=== PATIENT | female | born 2000 | race Caucasian/White ===

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

== ENCOUNTER 2019-02-03 23:16 | Emergency (ER) | payer MEDICAID ==
[2019-02-03] MEDS ORDERED: NS 1,000 ML IV ONE (23:58)
[2019-02-04 01:42] LABS: PLATELET COUNT 230 10^3/uL (150-400)
[2019-02-04 02:54] VITALS: BP 112/66
--- NOTE | 2019-02-04 02:55 | EDPHY ---
H & P Stated Complaint: uti sx 2 days and not feeling well Time Seen by Provider: 02/03/19 23:38 HPI/ROS: Chief complaint: URI like symptoms, abdominal pain, vaginal discomfort History of present illness: This is a 18-year-old female who presents to the emergency department for multiple complaints. She is complaining initially of a persistent sore throat over the last week. Symptoms have been persistent. She denies associated signs or symptoms including no fevers, no cough, no chest congestion, no body aches, no rash. In addition, she reports the onset of abdominal pain and vaginal discomfort over the last few days. It began shortly after sexual intercourse. She has pain in the right lower aspect of the abdomen and pelvis. She also has a burning sensation in the vagina. Symptoms have been persistent. She denies alleviating or aggravating factors. She denies other associated signs or symptoms including no nausea or vomiting, no diarrhea or constipation, no urinary symptoms including dysuria, frequency or hesitancy as well as no flank pain or back pain. Review of systems: A 10 point review of systems was obtained and other than described above was negative - Personal History LMP (Females 10-55): 1-7 Days Ago Current Tetanus/Diphtheria Vaccine: Yes Current Tetanus Diphtheria and Acellular Pertussis (TDAP): Yes - Medical/Surgical History Hx Asthma: No Hx Chronic Respiratory Disease: No Hx Diabetes: No Hx Cardiac Disease: No Hx Renal Disease: No Hx Cirrhosis: No Hx Alcoholism: No Hx HIV/AIDS: No Hx Splenectomy or Spleen Trauma: No Other PMH: MIGRAINES - Social History Smoking Status: Never smoked - Physical Exam Exam: General Appearance: Alert, nontoxic. Eyes: Pupils equal and round no pallor or injection. ENT, Mouth: Mucous membranes moist. Respiratory: There are no retractions, lungs are clear to auscultation. Cardiovascular: Regular rate and rhythm. Gastrointestinal: Bowel sounds are normal. Abdomen is soft and nondistended. There is tenderness in the right lower quadrant including over McBurney's point. No rebound tenderness. No guarding. Neurological: Alert and oriented. Strength and sensation intact and symmetrical. Skin: Warm and dry, no rashes. Musculoskeletal: Neck is supple non tender. Extremities are symmetrical, full range of motion. Psychiatric: Patient is oriented X 3, there is no agitation. Constitutional: Initial Vital Signs Temperature (C) 36.8 C 03/15/19 23:21 Heart Rate 89 02/03/19 23:21 Respiratory Rate 18 02/03/19 23:21 Blood Pressure 122/70 H 02/03/19 23:21 O2 Sat (%) 99 02/03/19 23:21 O2 Delivery Mode Room Air Allergies/Adverse Reactions: No Known Allergies Allergy (Unverified 02/03/19 23:23) Home Medications: Medication Instructions Recorded Albuterol [Proventil Inhaler HFA 1 - 2 puffs IH Q4PRN PRN #1 mdi 09/11/18 (*)] Azithromycin [Zithromax] 500 mg PO DAILY #1 tablet 09/11/18 Benzonatate [Tessalon Pearles (RX)] 200 mg PO TID PRN #15 cap 09/11/18 Etonogestrel [Nexplanon] 68 mg SQ 09/11/18 Sumatriptan Succinate [Imitrex] 4 mg SQ 09/11/18 ZYRTEC 09/11/18 Medical Decision Making - Diagnostics Imaging: Discussed imaging studies w/ yard caller Radiologist Procedures: Pelvic Exam: The vulva was normal no lesions. The vagina did not have significant discharge. The cervix was closed no bleeding and no purulent drainage. The uterus was normal size and non tender. The adnexa had no masses and no tenderness. The exam was performed with a whipped topping finisher. ED Course/Re-evaluation: Patient is discussed with my secondary supervising physician Dr. Poncho Perez. Patient presents to the emergency department with both URI like symptoms and abdominal/vaginal pain. She is nontoxic. Vital signs are stable. She does appear to have URI. Strep and mono are negative. Likely viral in nature. Symptomatic care is discussed I discussed it is not clear as to the cause of her abdominal pain/vaginal pain. Blood studies negative. Urinalysis unremarkable-culture is pending. Ultrasound identifies normal appendix an unremarkable pelvic. Pelvic exam unremarkable. Wet mount unremarkable. We did discuss CT scan, I believe it is unlikely to provide significant dated that will change the course of treatment at this time. She will be discharged home. She is asked to follow up with her primary care doctor for continued evaluation and care. Home care is discussed. Return precautions are given. Differential Diagnosis: Included but not limited to pharyngitis, strep pharyngitis, mononucleosis, influenza-although this was not tested for she is outside treatment range As well as Appendicitis, colitis, vaginal infections of multiple etiologies, PID, STEPHANIE, ovarian pathology, an associated complications - Data Points Laboratory Results: Laboratory Results 02/04/19 01:24 02/04/19 01:24 02/04/19 02/04/19 02/04/19 Unknown 02:45 01:24 WBC RBC Hgb Hct MCV MCH MCHC RDW Plt Count MPV Neut % (Auto) Lymph % (Auto) [place] % (Auto) Eos % (Auto) Baso % (Auto) Nucleat RBC Rel Count Absolute Neuts (auto) Absolute Lymphs (auto) Absolute Monos (auto) Absolute Eos (auto) Absolute Basos (auto) Absolute Nucleated RBC Immature Gran % Immature Gran # Sodium Potassium Chloride Carbon Dioxide Anion Gap BUN Creatinine Estimated GFR Glucose Calcium Beta HCG, Qual NEGATIVE Urine Color Urine Appearance Urine pH Ur Specific [place] Urine Protein Urine Ketones Urine Blood Urine Nitrate Urine Bilirubin Urine Urobilinogen Ur Leukocyte Esterase Urine RBC Urine WBC Ur Epithelial Cells Urine Bacteria Hyaline Casts Urine Mucus Urine Glucose Trichomonas (Wet Prep) 2+ EPITHELIAL CELLS Monoscreen NEGATIVE (NEGATIVE) Group A Strep Screen Group A Strep DNA Pending 02/04/19 02/04/19 02/04/19 01:24 01:24 00:00 WBC 6.58 10^3/uL 10^3/uL (3.80-9.50) RBC 4.69 10^6/uL 10^6/uL (4.18-5.33) Hgb 14.4 g/dL g/dL (12.6-16.3) Hct 42.3 % % (38.0-47.0) MCV 90.2 fL fL (81.5-99.8) MCH 30.7 pg pg (27.9-34.1) MCHC 34.0 g/dL g/dL (32.4-36.7) RDW 12.0 % % (11.5-15.2) Plt Count 230 10^3/uL 10^3/uL (150-400) MPV 10.1 fL fL (8.7-11.7) Neut % (Auto) 39.2 % L % (39.3-74.2) Lymph % (Auto) 50.5 % H % (15.0-45.0) [place] % (Auto) 7.0 % % (4.5-13.0) Eos % (Auto) 2.6 % % (0.6-7.6) Baso % (Auto) 0.5 % % (0.3-1.7) Nucleat RBC Rel Count 0.0 % % (0.0-0.2) Absolute Neuts (auto) 2.59 10^3/uL 10^3/uL (1.70-6.50) Absolute Lymphs (auto) 3.32 10^3/uL H 10^3/uL (1.00-3.00) Absolute Monos (auto) 0.46 10^3/uL 10^3/uL (0.30-0.80) Absolute Eos (auto) 0.17 10^3/uL 10^3/uL (0.03-0.40) Absolute Basos (auto) 0.03 10^3/uL 10^3/uL (0.02-0.10) Absolute Nucleated RBC 0.00 10^3/uL 10^3/uL (0-0.01) Immature Gran % 0.2 % % (0.0-1.1) Immature Gran # 0.01 10^3/uL 10^3/uL (0.00-0.10) Sodium 136 mEq/L mEq/L (135-145) Potassium 3.8 mEq/L mEq/L (3.5-5.2) Chloride 104 mEq/L mEq/L (97-110) Carbon Dioxide 26 mEq/l mEq/l (22-31) Anion Gap 6 mEq/L mEq/L (6-14) BUN 10 mg/dL mg/dL (7-23) Creatinine 0.6 mg/dL mg/dL (0.6-1.0) Estimated GFR > 60 Glucose 84 mg/dL mg/dL (70-100) Calcium 9.6 mg/dL mg/dL (8.5-10.4) Beta HCG, Qual Urine Color YELLOW Urine Appearance CLEAR Urine pH 6.0 (5.0-7.5) Ur Specific [place] 1.026 (1.002-1.030) Urine Protein NEGATIVE (NEGATIVE) Urine Ketones NEGATIVE (NEGATIVE) Urine Blood NEGATIVE (NEGATIVE) Urine Nitrate NEGATIVE (NEGATIVE) Urine Bilirubin NEGATIVE (NEGATIVE) Urine Urobilinogen 2.0 EU H EU (0.2-1.0) Ur Leukocyte Esterase NEGATIVE (NEGATIVE) Urine RBC 1-3 /hpf /hpf (0-3) Urine WBC 1-3 /hpf /hpf (0-3) Ur Epithelial Cells TRACE /lpf /lpf (NONE-1+) Urine Bacteria TRACE /hpf H /hpf (NONE SEEN) Hyaline Casts 1-5 /lpf /lpf (0-1) Urine Mucus 1+ /lpf /lpf (NONE-1+) Urine Glucose NEGATIVE (NEGATIVE) Trichomonas (Wet Prep) Monoscreen Group A Strep Screen Group A Strep DNA 02/03/19 23:55 WBC RBC Hgb Hct MCV MCH MCHC RDW Plt Count MPV Neut % (Auto) Lymph % (Auto) [place] % (Auto) Eos % (Auto) Baso % (Auto) Nucleat RBC Rel Count Absolute Neuts (auto) Absolute Lymphs (auto) Absolute Monos (auto) Absolute Eos (auto) Absolute Basos (auto) Absolute Nucleated RBC Immature Gran % Immature Gran # Sodium Potassium Chloride Carbon Dioxide Anion Gap BUN Creatinine Estimated GFR Glucose Calcium Beta HCG, Qual Urine Color Urine Appearance Urine pH Ur Specific [place] Urine Protein Urine Ketones Urine Blood Urine Nitrate Urine Bilirubin Urine Urobilinogen Ur Leukocyte Esterase Urine RBC Urine WBC Ur Epithelial Cells Urine Bacteria Hyaline Casts Urine Mucus Urine Glucose Trichomonas (Wet Prep) Monoscreen Group A Strep Screen NEGATIVE (NEGATIVE) Group A Strep DNA Medications Given: Discontinued Medications Sodium Chloride (Ns) 1,000 mls @ 0 mls/hr IV EDNOW ONE; Wide Open PRN Reason: Protocol Stop: 02/03/19 23:59 Last Admin: 02/04/19 00:14 Dose: 1,000 mls Departure - Departure Disposition: Home, Routine, Self-Care Clinical Impression: Pharyngitis, Abdominal pain, Vaginal pain Condition: Good Instructions: Pharyngitis (ED), Abdominal Pain (ED) Additional Instructions: Please follow-up with her primary care doctor for continued evaluation and care If symptoms worsen or new symptoms develop return to the emergency room for recheck Referrals: [facility]ER[facility]ING[facility] [Other] - As per Instructions
[2019-02-04 20:10] LABS: GROUP A STREP DNA (THROAT) POSITIVE (NEGATIVE)
== END 2019-02-04 03:42 | disposition home or self-care (01) ==
DX: J02.9 Acute pharyngitis, unspecified (principal); R10.31 Right lower quadrant pain; R10.2 Pelvic and perineal pain; E86.9 Volume depletion, unspecified

== ENCOUNTER 2019-03-11 21:53 | Emergency (ER) | payer MEDICAID ==
[2019-03-11 21:58] VITALS: BP 106/79
[2019-03-11] MEDS ORDERED: IBUPROFEN 600 MG TAB PO ONE (22:18)
[2019-03-11] MEDS ORDERED: ACETAMINOPHEN 500 MG TAB PO ONE (22:18)
--- NOTE | 2019-03-11 22:38 | EDPHY ---
General Time Seen by Provider: 03/11/19 22:07 Narrative: CLINICAL IMPRESSION: Viral pharyngitis ASSESSMENT/PLAN: 18-year-old female presents to the emergency department with 3 days of sore throat and 1 day of left otalgia. Vital signs stable, no tachycardia or fever. Tolerating secretions well. Clinically she has no signs of exudative tonsillitis, peritonsillar abscess, retropharyngeal abscess, epiglottitis, Elder's angina, acute otitis media. Rapid strep negative. I suspect patient has a viral pharyngitis with referred ear pain. She was given Tylenol and ibuprofen in the ED with improved pain. Home care discussed, primary care follow-up recommended, warning signs return to ED sooner outlined and discharge. DIFFERENTIAL DX: Differential includes but not limited to strep tonsillitis, viral pharyngitis, viral URI, otalgia secondary to pharyngitis, otitis media ED COURSE: Rapid strep negative CHIEF COMPLAINT: Sore throat, left ear pain HPI: 18-year-old female presents to the emergency department with 3 days of sore throat. Today and she began noticing left ear pain. She has been able to stay well-hydrated and has been eating and drinking. No history of chronic strep throat. No known exposures. No reported documented fever. No rash. She took ibuprofen yesterday but nothing today. PAST MEDICAL HISTORY: None reported See triage summary and nurse notes for addition applicable history Pertinent Past Surgical History: None reported Family History: Noncontributory Social History: Otherwise healthy REVIEW OF SYSTEMS: A full 10 point review of systems was negative except for those mentioned in HPI. PHYSICAL EXAM: General Appearance: Alert, oriented, appropriate, cooperative, NAD, well hydrated, non-toxic appearing, VSS, no hypoxia. HEENT: TMs are clear bilaterally no perforation or FB, no injection, no evidence of serous or mucopurulent otitis. Oropharynx clear is with mild erythema no exudates, no tonsillar hypertrophy or asymmetry. Dentition without abnormality. Eyes: PERRLA, no acute vision change, nystagmus, swelling, discharge, pain or photosensitivity. Conjunctiva pink, no pallor or injection Neck: Supple, nontender, no lymphadenopathy, no midline pain, FROM, no meningismus. Respiratory: There are no retractions, lungs are clear to auscultation. Cardiac: Regular rate and rhythm, no murmurs or gallops. Skin: Warm, dry, no rashes, no nodules on palpation. MEDICAL DECISION MAKING: Patient was seen independently. Secondary supervising physician at time of evaluation was: Dr. Perez. Diagnosis: Viral pharyngitis. New, requires workup Summary: See Assessment and Plan for summary of ED visit Clinical lab tests: ordered / reviewed. Patient Progress: Stable for discharge. - History Smoking Status: Never smoked - Objective Vital Signs: Initial Vital Signs Temperature (C) 36.5 C 03/11/19 21:55 Heart Rate 77 03/11/19 21:55 Respiratory Rate 16 03/11/19 21:55 Blood Pressure 106/79 03/11/19 21:55 O2 Sat (%) 99 03/11/19 21:55 O2 Delivery Mode Room Air Allergies/Adverse Reactions: No Known Allergies Allergy (Unverified 02/03/19 23:23) Home Medications: Medication Instructions Recorded Albuterol [Proventil Inhaler HFA 1 - 2 puffs IH Q4PRN PRN #1 mdi 09/11/18 (*)] Etonogestrel [Nexplanon] 68 mg SQ 09/11/18 Sumatriptan Succinate [Imitrex] 4 mg SQ 09/11/18 ZYRTEC 09/11/18 Microgestin 21 1.5-30 Tab 03/11/19 Laboratory Results: 03/11/19 03/11/19 Unknown 22:05 Group A Strep Screen NEGATIVE (NEGATIVE) Group A Strep DNA Pending Medications Given: Discontinued Medications Acetaminophen (Tylenol) 1,000 mg PO EDNOW ONE Stop: 03/11/19 22:19 Last Admin: 03/11/19 22:27 Dose: 1,000 mg Ibuprofen (Motrin) 600 mg PO EDNOW ONE Stop: 03/11/19 22:19 Last Admin: 03/11/19 22:28 Dose: 600 mg Departure - Departure Disposition: Home, Routine, Self-Care Clinical Impression: Viral pharyngitis Condition: Good Instructions: Pharyngitis (ED) Additional Instructions: DISCHARGE INSTRUCTIONS FROM YOUR DOCTOR Thank you for visiting our emergency department today. You were treated by a physician financial assistant today and your case was reviewed with our ED Attending physician. Please keep in mind that discharge from the emergency department does not mean that there is nothing wrong - it simply means that we have not identified an emergency condition that requires further evaluation or treatment in the hospital. You should always plan to follow up with primary care for re- evaluation of your condition in the next 2-3 days. If you have been referred to a specialist, please call as soon as possible (today or tomorrow) to schedule your follow up appointment at the appropriate time. RAPID STREP TEST WAS NEGATIVE. A CULTURE IS SENT, WE WILL CALL IN 2-3 DAYS IF CULTURE IS POSITIVE. PLS STAY WELL HYDRATED. USE TYLENOL OR IBUPROFEN FOR PAIN CONTROL. YOU HAVE NO EAR INFECTION. FOLLOWUP WITH A PRIMARY CARE DOCTOR. RETURN TO THE ER FOR WORSENING THROAT PAIN/SWELLING, TROUBLE TOLERATING YOUR SALIVA, FEVER/CHILLS, NECK PAIN/SWELLING OR ANY OTHER CONCERNS. People present with illnesses and injuries in different ways, and it is always possible that we have missed something. You may always return for re-evaluation if symptoms worsen or if they are not improving or if you develop new/different symptoms. Again, thank you for choosing our emergency department. We hope that you feel better. Referrals: NONE *PRIMARY CARE P,. [Primary Care Provider] - As per Instructions Belinda Melgar MD [Medical Doctor] - 2-3 days, call for appt. Stand Alone Forms: Work Excuse
[2019-03-12 19:10] LABS: GROUP A STREP DNA (THROAT) POSITIVE (NEGATIVE)
== END 2019-03-11 22:50 | disposition home or self-care (01) ==
DX: J02.8 Acute pharyngitis due to other specified organisms (principal); H92.02 Otalgia, left ear